=== PATIENT | female | born 1965 | race Caucasian/White ===

== ENCOUNTER 2019-08-07 13:05 | Emergency (ER) | payer MEDICARE, MEDICAID ==
[2019-08-07 13:47] LABS: ABSOLUTE BASOPHILS # (AUTO) 0.2 10^3/uL (0.0-0.2); ABSOLUTE EOSINOPHILS # (AUTO) 0.4 10^3/uL (0.0-0.6); ABSOLUTE LYMPHOCYTES (AUTO) 2.5 10^3/uL (0.5-4.7); ABSOLUTE MONOCYTES (AUTO) 1.1 10^3/uL (0.1-1.4); ABSOLUTE NEUT (AUTO) 11.4 10^3/uL (1.7-8.2); EOSINOPHILS % (AUTO) 2.6 % (0-6); HEMATOCRIT 35.8 % (36.0-47.0); HEMOGLOBIN 12.6 g/dL (12.0-15.5); MEAN CORPUSCULAR HEMOGLOBIN 31.1 pg (27.0-33.4); MEAN CORPUSCULAR HGB CONC 35.1 g/dL (32.0-36.0); MEAN CORPUSCULAR VOLUME 89 fl (80-97); PLATELET COUNT 718 10^3/uL (150-450); RED BLOOD COUNT 4.05 10^6/uL (3.72-5.28); RED CELL DISTRIBUTION WIDTH 13.7 % (11.5-14.0); SEGMENTED NEUTROPHILS % (AUTO) 73.4 % (42-78); TOTAL CELLS COUNTED % (AUTO) 100 %; WHITE BLOOD COUNT 15.6 10^3/uL (4.0-10.5)
[2019-08-07 14:02] LABS: ALBUMIN 4.6 g/dL (3.5-5.0); ALKALINE PHOSPHATASE 324 U/L (38-126); ANION GAP 17 (5-19); ASPARTATE AMINO TRANSFERASE 19 U/L (14-36); BILIRUBIN,DIRECT 0.3 mg/dL (0.0-0.4); BILIRUBIN,TOTAL 0.7 mg/dL (0.2-1.3); BLOOD UREA NITROGEN 14 mg/dL (7-20); CALCIUM 10.6 mg/dL (8.4-10.2); CARBON DIOXIDE 21 mmol/L (22-30); CHLORIDE 101 mmol/L (98-107); CREATINE KINASE 26 U/L (30-135); GLUCOSE 91 mg/dL (75-110); POTASSIUM 3.2 mmol/L (3.6-5.0); TOTAL PROTEIN 8.2 g/dL (6.3-8.2)
[2019-08-07 14:14] LABS: CREATINE KINASE MB 1.37 ng/mL (<4.55)
[2019-08-07 14:41] LABS: TROPONIN I < 0.012 ng/mL
--- NOTE | 2019-08-07 15:06 | EKG REPORT ---
SEVERITY:- OTHERWISE NORMAL ECG - SINUS TACHYCARDIA VENTRICULAR PREMATURE COMPLEX DIFFUSE NONSPECIFIC ST-T CHANGES : Confirmed by: Josiah Troy MD 07-Aug-2019 15:05:33
[2019-08-07] MEDS ORDERED: ONDANSETRON HCL INJ/PF 4 MG/2 ML SDV IV ONE (15:26)
[2019-08-07] MEDS ORDERED: MORPHINE SULFATE 10 MG/ML INJ IV ONE (15:26)
[2019-08-07] MEDS ORDERED: POTASSIUM CHLORIDE 10 MEQ TABLET.ER PO ONE (15:28)
--- NOTE | 2019-08-07 15:34 | ER Document Report ---
ED General - General Chief Complaint: Chest Pain Stated Complaint: CHEST PAIN Time Seen by Provider: 08/07/19 15:25 TRAVEL OUTSIDE OF THE [place] IN LAST 30 DAYS: No - HPI Notes: patient is a 54-year-old female sent into the emergency department for evaluation from [facility]. She is they are recovering from a right hip fracture, 1 week status post repair. She comes in complaining of left-sided ch est pain. She describes it as "wrenching" and states it radiates into her neck. Is been intermittent since onset at 730 this morning. She was at rest when it started. She states movement of any sort exacerbates it, she has no pain when she is still. She denies any associated shortness of breath, diaphoresis, near syncope. She has had nausea and vomiting, 3 episodes of nonbloody, nonbilious e mesis since onset. She does state that she vomits frequently, however, attributes this to stress. She states at rest she is a pain that is a 0 out of 5, with any movement or touching the area it is a 5. - Related Data Home Medications: BuSpar, Cymbalta, Robaxin, mirtazapine, Naprosyn, oxybutynin, Percocet, although patient states that she has not had any of this in 2 days Past Medical History - General Information source: Patient, Outside Facility Records - Social History Smoking Status: Current Every Day Smoker Family History: Reviewed & Not Pertinent Patient has suicidal ideation: No Patient has homicidal ideation: No Neurological Medical History: Reports: Other - Multiple sclerosis, history of astrocytoma, TIA Malignancy Medical History: Reports: Other - Spinal astrocytoma, status post resection 20 years ago Psychiatric Medical History: Reports: Hx Bipolar Disorder Review of Systems - Review of Systems Constitutional: No symptoms reported EENT: No symptoms reported Cardiovascular: No symptoms reported Respiratory: No symptoms reported Gastrointestinal: See HPI Genitourinary: No symptoms reported Musculoskeletal: See HPI Skin: No symptoms reported Neurological/Psychological: No symptoms reported Physical Exam - Vital signs Vitals: Pulse Ox 98 08/07/19 13:15 - Notes Notes: This is a 54-year-old female who appears older than her stated age in no acute distress. Vital signs reviewed, please refer to chart. Head is normocephalic, atraumatic. Pupils equal round, reactive to light. Neck is supple without meningismus. Oral mucosa is moist. Heart is regular rate and rhythm. Lungs are clear to auscultation bilaterally. Chest wall and left lateral neck are markedly tender to palpation with no overlying skin changes. Abdomen is soft, nontender, normoactive bowel sounds throughout. Extremities without cyanosis, clubbing. Posterior calves are nontender. Peripheral pulses are equal. Skin is warm and dry. Patient is awake, alert, neurological exam is nonfocal. Course - Re-evaluation Re-evalutation: 08/07/19 15:40 Patient presents to the emergency department for evaluation of left-sided chest pain. She denies any associated shortness of breath, has had vomiting, but states this is been ongoing. The patient has a history of chronic opiate use, has chronic back pain, and states she is not had any of her Percocet in the last 2 days. I suspect that a lot of her symptoms are secondary to narcotic withdrawal. She is, however, mildly tachycardic with a history of recent surgery. She does not have any calf tenderness or edema, but I am concerned about the possibility of a pulmonary embolus being responsible for her symptoms. Lab work failed to show any significant abnormality at this time, with the exc eption of hypokalemia, which is being addressed. I did add a magnesium level. Patient will be sent for CT angiogram of the chest. She is given pain medicine, nausea medication. We will continue to monitor. 08/07/19 17:40 I was notified by nursing that the patient did not want to have a CT scan with IV contrast. She states that it "made her very sick." I explained her that I could medicate her to try and keep this from happening. I explained to her that the only way I could rule out a pulmonary embolus was with this test, and I strongly advised that she get it. She voiced understanding to what I wanted to do. She voiced understanding to the possible diagnosis being ruled out, as well as the consequences of an undiagnosed pulmonary embolus. She still refuses to have this test done. I explained her that anytime she could return to the ED to have this test performed. She voiced understanding. She did ask for something else for pain before leaving. She was given 1 Percocet, other chronic pain medicine she had been on in the past. Otherwise she is to return to the ED if she decides to have her tests done, or certainly if she develops any new or concerning symptoms of any sort. - Vital Signs Vital signs: Temp Pulse Resp BP Pulse Ox 14 110/68 99 08/07/19 17:01 08/07/19 17:01 08/07/19 17:01 - Laboratory Result Diagrams: 08/07/19 13:33 08/07/19 13:33 Laboratory results interpreted by me: 08/07/19 08/07/19 13:33 13:33 WBC 15.6 H Hct 35.8 L Plt Count 718 H Absolute Neuts (auto) 11.4 H Potassium 3.2 L Carbon Dioxide 21 L Calcium 10.6 H Alkaline Phosphatase 324 H Creatine Kinase 26 L - Diagnostic Test Radiology reviewed: Reports reviewed - EKG Interpretation by Me Additional EKG results interpreted by me: 08/07/19 15:41 Sinus tachycardia with PVC, rate of 106 bpm. Normal axis and intervals. Nons pecific ST changes, but no acute ST elevation concerning for infarction. There are no old studies available for comparison. Discharge - Discharge Clinical Impression: Hypokalemia Chest pain Qualifiers: Chest pain type: unspecified Qualified Code(s): R07.9 - Chest pain, unspecified Condition: Stable Disposition: AGAINST MEDICAL ADVICE Instructions: Chest Pain of Unclear Cause ([facility]), Hypokalemia ([facility]) Additional Instructions: You have elected to leave AGAINST MEDICAL ADVICE. It has been explained to you that I would like to perform a study called a CT angiogram of your chest, with IV contrast. This would be to rule out a blood clot to your lungs. You have refused this. It is been explained to you that a blood clot in your lungs could be potentially fatal, and this is the test I have available to evaluate you for this condition. Please understand that if you change your mind at any time you can present to the ED for further evaluation. Otherwise, please follow-up closely with your primary care provider.
[2019-08-07] MEDS ORDERED: OXYCODONE-ACETAMINOPHEN 5-325 MG TABLET PO ONE (17:38)
[2019-08-07 18:13] VITALS: BP 107/66
== END 2019-08-07 18:24 | disposition left against medical advice (07) ==
LOC: ER 13:05
DX: E87.6 Hypokalemia (principal); R07.9 Chest pain, unspecified; F17.200 Nicotine dependence, unspecified, uncomplicated; G35 Multiple sclerosis; Z98.890 Other specified postprocedural states; Z86.73 Personal history of transient ischemic attack (TIA), and cerebral infarction without residual deficits
CPT/HCPCS: 93005; 99285; 96374; 96375; 36415; 82553; 82550; 83735; 85025; 80053; 84484; 93010; J2270; A9270 ×2; J2405